=== PATIENT | male | born 1975 | race Caucasian/White ===

== ENCOUNTER 2020-05-12 19:52 | Emergency (ER) | payer OTHER, MEDICAID ==
[~2020-05-12] VITALS: Ht 177.8 cm; Wt 65.8 kg
[2020-05-12 20:46] VITALS: Ht 177.8 cm; Wt 65.8 kg
[2020-05-12 20:54] LABS: BASOPHIL % 0.8 % (0.2-1.5); PLATELET COUNT 215 x10^3mcL (152-348); RED CELL DISTRIBUTION WIDTH 12.7 % (12.1-16.2)
[2020-05-12 21:00] LABS: rbc morphology (normal/abnorm) NORMAL (NORMAL)
[2020-05-12 21:37] LABS: CARBON DIOXIDE 23.4 mmol/L (21-32); CHLORIDE SERUM 100 mmol/L (98-107); CREATININE SERUM 0.9 mg/dL (0.7-1.3); GFR1 > 60 mL/min; GLUCOSE SERUM 88 mg/dL (74-106); POTASSIUM SERUM 3.9 mmol/L (3.5-5.1); SODIUM SERUM 139 mmol/L (136-145)
[2020-05-12 21:42] LABS: ALBUMIN 4.5 g/dL (3.4-5.0); ALKALINE PHOSPHATASE 56 U/L (46-116); ALT/SGPT 14 U/L (16-63); AST/SGOT 17 U/L (15-37); BILIRUBIN TOTAL 0.8 mg/dL (0.20-1.00); TOTAL PROTEIN, SERUM 7.8 g/dL (6.4-8.2)
[2020-05-12 21:48] VITALS: BP 111/68
== END 2020-05-12 23:11 | disposition home or self-care (01) ==
LOC: ED 19:52
PROVIDERS: Student in an Organized Health Care Education/Training Program
DX: G40.909 Epilepsy, unspecified, not intractable, without status epilepticus (principal); M62.838 Other muscle spasm; Z88.5 Allergy status to narcotic agent
CPT/HCPCS: J2060